=== PATIENT | male | born 1975 | race Two or more races ===

== ENCOUNTER → 2020-09-22 | Outpatient (CLI) | payer OTHER ==
[2020-09-22 11:53] LABS: Basophils # (auto) 0.1 10 ^3/uL (0-0.2); Basophils % (auto) 0.9 % (0.0-2.0); Eosinophils # (auto) 0.1 10 ^3/uL (0-0.8); Eosinophils % (auto) 1.6 % (0.0-7.0); Hematocrit 43.5 % (41.0-53.0); Hemoglobin 15.3 g/dL (13.5-17.5); Lymphocytes # (auto) 1.9 10 ^3/uL (0.4-5.4); Lymphocytes % (auto) 33.6 % (10.0-50.0); Mean Corpuscular Hemoglobin 31.6 pg (28.0-32.0); Mean Corpuscular Hgb Conc. 35.2 g/dL (32.0-36.0); Mean Corpuscular Volume 89.8 fL (80.0-100.0); Monocytes # (auto) 0.5 10 ^3/uL (0-1.3); Monocytes % (auto) 8.7 % (0.0-12.0); Neutrophils # (auto) 3.2 10 ^3/uL (1.6-8.6); Neutrophils % (auto) 55.2 % (37.0-80.0); Platelet Count (auto) 214 10^3/uL (140-450); Red Blood Cells 4.84 10^6/uL (4.5-5.90); White Blood Cell 5.8 10^3/uL (4.4-10.8)
[2020-09-22 12:22] LABS: Urine Bacteria NONE SEEN /hpf (None Seen); Urine Blood Negative /uL (Negative); Urine Specific Gravity 1.026 (1.001-1.035); Urine WBC <1 /hpf (0 - 3)
[2020-09-22 12:25] LABS: Potassium 3.9 mmol/L (3.5-5.1)
[2020-09-22 12:34] LABS: Albumin 3.6 g/dL (3.4-5.0); Bilirubin, Total 0.6 mg/dL (0.2-1.0); Calcium 8.4 mg/dL (8.5-10.1); Total Protein 7.2 g/dL (6.4-8.2)
== END | disposition home or self-care (01) ==
LOC: LAB 10:55
PROVIDERS: ATTEND Student in an Organized Health Care Education/Training Program
DX: F41.0 Panic disorder [episodic paroxysmal anxiety] (principal); R73.9 Hyperglycemia, unspecified; M25.50 Pain in unspecified joint
CPT/HCPCS: 36415; 80053; 80061; 81001; 83036; 84443; 85025; 86431

== ENCOUNTER 2020-10-20 12:12 | Inpatient (IN) | payer OTHER ==
[~2020-10-20] VITALS: Ht 167.6 cm; Wt 87.8 kg
[2020-10-20 13:49] LABS: Basophils # (auto) 0.1 10 ^3/uL (0-0.2); Eosinophils # (auto) 0.1 10 ^3/uL (0-0.8); Eosinophils % (auto) 1.6 % (0.0-7.0); Hematocrit 45.4 % (41.0-53.0); Hemoglobin 15.5 g/dL (13.5-17.5); Lymphocytes # (auto) 1.9 10 ^3/uL (0.4-5.4); Lymphocytes % (auto) 31.5 % (10.0-50.0); Mean Corpuscular Hemoglobin 30.9 pg (28.0-32.0); Mean Corpuscular Hgb Conc. 34.2 g/dL (32.0-36.0); Mean Corpuscular Volume 90.3 fL (80.0-100.0); Monocytes # (auto) 0.6 10 ^3/uL (0-1.3); Monocytes % (auto) 9.5 % (0.0-12.0); Neutrophils # (auto) 3.3 10 ^3/uL (1.6-8.6); Neutrophils % (auto) 56.4 % (37.0-80.0); Platelet Count (auto) 208 10^3/uL (140-450); Red Blood Cells 5.02 10^6/uL (4.5-5.90); Red Cell Distribution Width 14.2 % (11.8-14.3); White Blood Cell 5.9 10^3/uL (4.4-10.8)
[2020-10-20 13:59] LABS: Albumin 3.8 g/dL (3.4-5.0); Anion Gap 5 (5-15); Blood Urea Nitrogen 9 mg/dL (7-18); Calcium 8.5 mg/dL (8.5-10.1); Carbon Dioxide 27 mmol/L (21-32); Chloride 109 mmol/L (98-107); Glucose 81 mg/dL (74-106); Potassium 3.7 mmol/L (3.5-5.1); Sodium 141 mmol/L (136-145)
[2020-10-20] MEDS ORDERED: MORPHINE SULFATE 4 MG/ML SYR/VIAL IV ONE (14:00)
[2020-10-20] MEDS ORDERED: ONDANSETRON HCL 4 MG/2 ML VIAL IV ONE (14:00)
[2020-10-20 14:05] LABS: Alanine Aminotransferase 47 U/L (16-61); Alkaline Phosphatase 60 U/L (45-117); Aspartate Aminotransferase 20 U/L (15-37); Bilirubin, Total 0.5 mg/dL (0.2-1.0); GFR African American 232 mL/min; GFR Non-African American 192 mL/min; Total Protein 7.5 g/dL (6.4-8.2)
[2020-10-20] MEDS ORDERED: MORPHINE SULF INJ 2 MG/ML SYRINGE 1ML IV PRN (16:15)
[2020-10-20] MEDS ORDERED: NITROGLYCERIN 0.4 MG SL TAB SL PRN (16:15)
[2020-10-20] MEDS ORDERED: ONDANSETRON HCL 4 MG/2 ML VIAL IV PRN (16:15)
[2020-10-20] MEDS ORDERED: hydrALAZINE HCL 20 MG/ML VL IV PRN (16:15)
[2020-10-20] MEDS: HYDROcodone-ACET 5/325MG TAB PO PRN (20:26)
[2020-10-20 21:15] LABS: Alcohol, Urine < 3.0 mg/dL (0-10); Amphetamine Screen, Urine NEGATIVE (NEGATIVE); Barbiturate Scree,Urine NEGATIVE (NEGATIVE); Benzodiazephine Screen, Urine NEGATIVE (NEGATIVE); Cannabinoid Screen, Urine NEGATIVE (NEGATIVE); Cocaine Screen, Urine NEGATIVE (NEGATIVE); Opiate Scree,Urine NEGATIVE (NEGATIVE); Phencyclidine Screen, Urine NEGATIVE (NEGATIVE)
[2020-10-20] MEDS: MAGNESIUM OXIDE 400 MG TAB PO SCH (22:30)
[2020-10-20] MEDS: METOPROLOL TARTRATE 25 MG TAB PO SCH (22:30)
[2020-10-20] MEDS: DOCUSATE SOD 100 MG CAP PO SCH (22:30)
[2020-10-20] MEDS: ATORVASTATIN 20 MG TAB PO SCH (22:33)
[2020-10-20] MEDS: MORPHINE SULF INJ 2 MG/ML SYRINGE 1ML IV PRN (22:45)
[2020-10-20] MEDS: TEMAZEPAM 15 MG CAP PO PRN (23:46)
[2020-10-21] VITALS (7 sets, daily range): BP systolic 95–126; BP diastolic 57–83
[2020-10-21] MEDS: HYDROcodone-ACET 5/325MG TAB PO PRN ×2 (03:10→23:28)
[2020-10-21] MEDS ORDERED: IBUP600T27 PO (04:13)
[2020-10-21] MEDS: DOCUSATE SOD 100 MG CAP PO SCH ×2 (09:42→21:59)
[2020-10-21] MEDS: FAMOTIDINE 20 MG TAB PO SCH (09:43)
[2020-10-21] MEDS: ASPirin-EC 81 mg tab PO SCH (09:43)
[2020-10-21] MEDS: METOPROLOL TARTRATE 25 MG TAB PO SCH ×2 (09:45→21:59)
[2020-10-21] MEDS: MAGNESIUM OXIDE 400 MG TAB PO SCH ×2 (09:46→21:59)
[2020-10-21] MEDS: LISINOPRIL 10 MG TAB PO SCH (09:46)
[2020-10-21 09:49] LABS: Basophils # (auto) 0.1 10 ^3/uL (0-0.2); Basophils % (auto) 1.3 % (0.0-2.0); Eosinophils # (auto) 0.1 10 ^3/uL (0-0.8); Eosinophils % (auto) 2.6 % (0.0-7.0); Hematocrit 43.6 % (41.0-53.0); Hemoglobin 14.9 g/dL (13.5-17.5); Lymphocytes # (auto) 1.3 10 ^3/uL (0.4-5.4); Lymphocytes % (auto) 24.2 % (10.0-50.0); Mean Corpuscular Hemoglobin 31.4 pg (28.0-32.0); Mean Corpuscular Hgb Conc. 34.3 g/dL (32.0-36.0); Mean Corpuscular Volume 91.6 fL (80.0-100.0); Monocytes # (auto) 0.6 10 ^3/uL (0-1.3); Monocytes % (auto) 11.7 % (0.0-12.0); Neutrophils # (auto) 3.1 10 ^3/uL (1.6-8.6); Neutrophils % (auto) 60.2 % (37.0-80.0); Nucleated Red Blood Cells % 0.1 %; Platelet Count (auto) 196 10^3/uL (140-450); Red Blood Cells 4.76 10^6/uL (4.5-5.90); Red Cell Distribution Width 14.5 % (11.8-14.3); White Blood Cell 5.2 10^3/uL (4.4-10.8)
[2020-10-21 10:07] LABS: Calcium 7.9 mg/dL (8.5-10.1); Potassium 3.6 mmol/L (3.5-5.1)
[2020-10-21 10:13] LABS: INR 1.02 (0.9-1.15); Partial Thromboplastin Time 25.3 sec (23.0-31.2)
[2020-10-21] MEDS: ACETAMINOPHEN 500 MG TAB PO PRN (13:50)
[2020-10-21] MEDS ORDERED: ERGOCALCIFEROL 50,000 UNIT(1.25MG) CAP PO SCH (15:00)
[2020-10-21 15:07] LABS: Urine WBC None Seen /hpf (0 - 3)
[2020-10-21 15:30] LABS: Urine Bacteria NONE SEEN /hpf (None Seen); Urine Blood Negative /uL (Negative); Urine Specific Gravity 1.006 (1.001-1.035)
[2020-10-21] MEDS: ATORVASTATIN 20 MG TAB PO SCH (21:58)
[2020-10-21] MEDS: TEMAZEPAM 15 MG CAP PO PRN (21:58)
[2020-10-21] MEDS: MORPHINE SULF INJ 2 MG/ML SYRINGE 1ML IV PRN (22:00)
[2020-10-22] MEDS ORDERED: HYDROmorphone HCL 2 MG TAB PO ONE (00:45)
[2020-10-22] MEDS: MORPHINE SULF INJ 2 MG/ML SYRINGE 1ML IV PRN (04:53)
[2020-10-22] MEDS: ACETAMINOPHEN 500 MG TAB PO PRN (04:58)
[2020-10-22 05:00] VITALS: BP 116/71
[2020-10-22 09:00] VITALS: BP 107/64
[2020-10-22] MEDS: DOCUSATE SOD 100 MG CAP PO SCH (09:52)
[2020-10-22] MEDS: ASPirin-EC 81 mg tab PO SCH (09:53)
[2020-10-22] MEDS: FAMOTIDINE 20 MG TAB PO SCH (09:54)
[2020-10-22] MEDS: LISINOPRIL 10 MG TAB PO SCH (09:54)
[2020-10-22] MEDS: METOPROLOL TARTRATE 25 MG TAB PO SCH (09:55)
[2020-10-22] MEDS: MAGNESIUM OXIDE 400 MG TAB PO SCH (09:56)
[2020-10-22] MEDS: HYDROcodone-ACET 5/325MG TAB PO PRN ×2 (10:01→16:00)
[2020-10-22 13:00] VITALS: BP 107/71
[2020-10-22 13:29] VITALS: BP 107/64
[2020-10-22 17:00] VITALS: BP 117/77
== END 2020-10-22 20:12 | disposition home or self-care (01) | DRG 313 ==
LOC: EDBD 12:12 → ER 12:12 → TELE 12:13 → TELE-WESTW 10-21 02:48
PROVIDERS: ADMIT Nurse Practitioner Acute Care; ATTEND Internal Medicine
DX: R07.9 Chest pain, unspecified (principal); G91.1 Obstructive hydrocephalus; I95.9 Hypotension, unspecified; Z20.822 Contact with and (suspected) exposure to COVID-19; E66.9 Obesity, unspecified; Q85.01 Neurofibromatosis, type 1; Z90.49 Acquired absence of other specified parts of digestive tract; Z68.31 Body mass index [BMI] 31.0-31.9, adult
CPT/HCPCS: 36415; 70450; 71045; 71250; 80048; 80053; 80307; 81001; 82306; 82728; 83735; 83880; 84443; 84484; 85025; 85379; 85610; 85652; 85730; 86141; 87426; 93005; 93306; G0378; J2405